=== PATIENT | male | born 1975 | race Caucasian/White ===

== ENCOUNTER 2022-08-01 14:46 | Emergency (ER) | payer MEDICAID ==
[~2022-08-01] VITALS: Ht 167.6 cm; Wt 67.1 kg
--- NOTE | 2022-08-01 14:50 | NUR ---
Pt was triaged and placed in ER waiting room. The ER is saturated and there are no ER beds available.
[2022-08-01] MEDS ORDERED: IV NORMAL SALINE 1000 ML BAG IV ONE (15:00)
[2022-08-01] MEDS ORDERED: ONDANSETRON 4 MG/2 ML VIAL IV ONE (15:00)
--- NOTE | 2022-08-01 15:10 | NUR ---
Pt to room 4B via w/c.
[2022-08-01 15:30] LABS: MEAN CORPUSCULAR VOLUME 82.5 fL (73.0-96.2); PLATELET COUNT (AUTO) 306 K/uL (152-348)
[2022-08-01 15:47] LABS: BILIRUBIN,DIRECT 0.1 mg/dL (0.0-0.2); BILIRUBIN,TOTAL 0.4 mg/dL (0.2-1.0); CREATININE 0.9 mg/dL (0.6-1.3); TOTAL PROTEIN, SERUM 8.4 g/dL (6.4-8.2)
[2022-08-01] MEDS ORDERED: ONDANSETRON 4 MG/2 ML VIAL ONE (16:14)
[2022-08-01] MEDS ORDERED: MORPHINE SULFATE 4 MG/1 ML DISP.SYRIN IV ONE (16:15)
[2022-08-01] MEDS ORDERED: FAMOTIDINE. 20 MG/2 ML VIAL IV ONE ×2 (16:15→16:32)
[2022-08-01] MEDS ORDERED: MAG HYDROX/AL HYDROX/SIMETH 30 ML LIQUID UDC PO ONE (16:15)
[2022-08-01] MEDS ORDERED: LIDOCAINE VISCUS 2% 15 ML UDC MM ONE (16:15)
[2022-08-01] MEDS ORDERED: MAG HYDROX/AL HYDROX/SIMETH 30 ML LIQUID UDC ONE (16:31)
[2022-08-01] MEDS ORDERED: LIDOCAINE VISCUS 2% 15 ML UDC ONE (16:31)
[2022-08-01] MEDS ORDERED: MORPHINE SULFATE 4 MG/1 ML DISP.SYRIN ONE (16:32)
--- NOTE | 2022-08-01 16:50 | NUR ---
Pt went to CT and when he came back his bed in 4B was taken by another pt so he is in the ER hallway now.
[2022-08-01] MEDS ORDERED: ONDA4TAB5 PO (17:21)
[2022-08-01] MEDS ORDERED: FAMO-132 PO (17:21)
--- NOTE | 2022-08-01 17:40 | NUR ---
IV removed. Catheter intact and site benign. Pressure and 4x4 gauze applied to site. No bleeding noted.
--- NOTE | 2022-08-01 17:40 | NUR ---
Patient discharged to home in stable condition. Written and verbal after care instructions given. Patient verbalizes understanding of instructions. Stressed follow up or return to ER for worsening s/s.
== END 2022-08-01 17:41 | disposition home or self-care (01) ==
LOC: ER 14:46
DX: R10.9 Unspecified abdominal pain (principal); R11.2 Nausea with vomiting, unspecified; M50.30 Other cervical disc degeneration, unspecified cervical region; M79.2 Neuralgia and neuritis, unspecified; M16.12 Unilateral primary osteoarthritis, left hip; E11.9 Type 2 diabetes mellitus without complications; K76.0 Fatty (change of) liver, not elsewhere classified
CPT/HCPCS: 99285; 74176; 96374; 96375; 80076; 80048; 83690; 85025; J2405; J2270; J7040; A4663; J3490